=== PATIENT | male | born 1965 | race Caucasian/White ===

== ENCOUNTER → 2023-12-03 10:59 | Outpatient (REF) | payer OTHER, SELFPAY | LOC: DHCBC/DCA 10:59 | PROVIDERS: ATTENDING PHYSICIAN Internal Medicine Cardiovascular Disease; FAMILY PHYSICIAN Family Medicine | DX: R07.2 Precordial pain (principal) | CPT/HCPCS: 78452; 93017; A9500 ==

== ENCOUNTER → 2023-12-05 08:06 | Outpatient (REF) | payer OTHER, SELFPAY | LOC: DHCBC HW 08:06 | PROVIDERS: ATTENDING PHYSICIAN Internal Medicine Cardiovascular Disease; FAMILY PHYSICIAN Family Medicine | DX: R06.09 Other forms of dyspnea (principal) | CPT/HCPCS: 93306 ==